=== PATIENT | female | born 1935 | race Caucasian/White ===

== ENCOUNTER 2021-05-05 11:42 | Inpatient (IN) | payer OTHER ==
[2021-05-05 12:14] VITALS: BMI 23.8
[2021-05-05 13:26] LABS: BASO % 0.9 % (0-2.0); EOS % 0.5 % (0-4.5); HEMATOCRIT 33.8 % (32.4-45.2); HEMOGLOBIN 11.3 GM/dL (10.7-15.3); LYMPH % 10.7 % (8-40); MCH 30.8 pg (25.7-33.7); MCHC 33.6 g/dl (32.0-36.0); MEAN CELL VOLUME 91.9 fl (80-96); MEAN PLT VOLUME 6.7 fl (7.5-11.1); NEUT % 81.9 % (42.8-82.8); PLATELET COUNT 424 10^3/uL (134-434); RBC 3.67 M/mm3 (3.60-5.2); WHITE BLOOD COUNT 8.8 K/mm3 (4.0-10.0)
[2021-05-05 13:29] LABS: EPI CELLS 18 /uL (0-25.1); HYALINE CASTS 2 /uL (0-3.1); URINE APPEARANCE TURBID; URINE BACTERIA >9,000 /uL (0-1359); URINE BILIRUBIN NEGATIVE (NEGATIVE); URINE COLOR YELLOW; URINE GLUCOSE (UA) NEGATIVE (NEGATIVE); URINE KETONE NEGATIVE (NEGATIVE); URINE LEUK ESTERASE 3+ (NEGATIVE); URINE NITRITE NEGATIVE (NEGATIVE); URINE PROTEIN 2+ (NEGATIVE); URINE RBC 96 /uL (0-23.9); URINE UROBILINOGEN 0.2 mg/dL (0.2-1.0); URINE WBC 5121 /uL (0-25.8)
[2021-05-05 13:32] LABS: INR 0.98 (0.83-1.09); PROTHROMBIN TIME (PATIENT) 11.9 SEC (9.7-13.0)
[2021-05-05 13:35] LABS: ACTIVATED PTT 25.6 SECONDS (25.2-36.5)
[2021-05-05 13:44] LABS: CHLORIDE 103 mmol/L (98-107); SODIUM 137 mmol/L (136-145)
[2021-05-05 13:46] LABS: ALBUMIN 3.1 g/dl (3.4-5.0); BLOOD UREA NITROGEN 8.4 mg/dL (7-18); CALCIUM 8.5 mg/dL (8.5-10.1)
[2021-05-05 13:47] LABS: ANION GAP 10 MMOL/L (8-16); CO2 24 mmol/L (21-32); GLUCOSE,RANDOM 106 mg/dL (74-106)
[2021-05-05 13:50] LABS: CREATININE 0.7 mg/dL (0.55-1.3); SGOT/AST 34 U/L (15-37); SGPT/ALT 20 U/L (13-61)
[2021-05-05 13:51] LABS: BILIRUBIN,TOTAL 0.3 mg/dL (0.2-1)
[2021-05-05 13:52] LABS: TOT PROT 6.6 g/dl (6.4-8.2)
[2021-05-05 13:53] LABS: ALK PHOS 140 U/L (45-117)
[2021-05-05 13:56] LABS: N-TERMINAL BNP 2958.7 pg/ml (5-450)
[2021-05-05] MEDS ORDERED: SODIUM CHLORIDE 0.9% 500 ML INFUS.BAG IV ONE (15:52)
[2021-05-05] MEDS ORDERED: ACETAMINOPHEN 1000 MG/100 ML VIAL (NON FORMULARY) IVPB ONE (16:37)
[2021-05-05] MEDS ORDERED: ACETAMINOPHEN INJECTION 100 ML IVPB ONE (16:55)
[2021-05-05] MEDS ORDERED: CEFTRIAXONE 1,000 MG in DEXTROSE 5%-WATER - 50 ML IVPB ONE (20:52)
[2021-05-05] MEDS ORDERED: CEFTRIAXONE 1 GM/50 ML BAG ONE (21:15)
[2021-05-05] MEDS ORDERED: MELATONIN 1 MG TABLET PO PRN (22:05)
[2021-05-06] MEDS: oxyCODONE HCL 5 MG TABLET PO SCH ×3 (05:15→16:19)
[2021-05-06] MEDS: INSULIN SLIDING SCALE (NOVOLOG) 1 VIAL SQ SCH ×4 (06:13→21:22)
[2021-05-06 09:17] LABS: CREATININE 0.4 mg/dL (0.55-1.3)
[2021-05-06] MEDS ORDERED: POTASSIUM CHLORIDE TABS 20 MEQ TABLET.ER (FP) PO ONE (09:17)
[2021-05-06] MEDS: DOCUSATE SODIUM 100 MG CAPSULE (FP) PO SCH ×2 (09:38→21:12)
[2021-05-06] MEDS: TAMSULOSIN HCL 0.4 MG CAP PO SCH (09:38)
[2021-05-06] MEDS: ASPIRIN 81 MG CHEWABLE TABLETS PO SCH (09:39)
[2021-05-06] MEDS: amLODIPine BESYLATE 5 MG TABLET (FP) PO SCH (09:46)
[2021-05-06] MEDS: VALSARTAN 80 MG TABLET PO SCH (09:46)
[2021-05-06] MEDS: ISOSORBIDE MONONITRATE 30 MG TAB.SR.24H (FP) PO SCH (09:46)
[2021-05-06] MEDS: CARVEDILOL 25 MG TABLET (FP) PO SCH (09:47)
[2021-05-06] MEDS: CLOPIDOGREL BISULFATE 75 MG TABLET (FP) PO SCH (09:47)
[2021-05-06] MEDS: PANTOPRAZOLE 40 MG TABLET PO SCH (09:47)
[2021-05-06] MEDS: LIDOCAINE 5% TOPICAL PATCH TP SCH (09:48)
[2021-05-06 09:53] LABS: BASO % 0.7 % (0-2.0); EOS % 0.9 % (0-4.5); HEMATOCRIT 32.5 % (32.4-45.2); MCH 30.5 pg (25.7-33.7); MCHC 33.9 g/dl (32.0-36.0); MEAN PLT VOLUME 6.5 fl (7.5-11.1); MONO % 6.9 % (3.8-10.2); NEUT % 81.5 % (42.8-82.8); PLATELET COUNT 361 10^3/uL (134-434); RBC 3.61 M/mm3 (3.60-5.2); RDW 17.4 % (11.6-15.6); WHITE BLOOD COUNT 10.4 K/mm3 (4.0-10.0)
[2021-05-06] MEDS ORDERED: metFORMIN HCL 500 MG TABLET (FP) PO SCH (10:00)
[2021-05-06] MEDS: KCL 10 MEQ IVPB 10 MEQ/100 ML INFUS.BAG IVPB SCH ×3 (11:34→16:21)
[2021-05-06] MEDS: ACETAMINOPHEN 325 MG TABLET (FP) PO SCH ×3 (11:35→19:16)
[2021-05-06] MEDS ORDERED: cefTRIAXone SODIUM 1 GM VIAL ONE (20:41)
[2021-05-06] MEDS ORDERED: DEXTROSE 5%-WATER - 50 ML IVPB ONE (20:41)
[2021-05-06] MEDS: SENNOSIDES 8.6MG TABLET (FP) PO SCH (21:06)
[2021-05-06] MEDS: CEFTRIAXONE 1 GM in DEXTROSE 5%-WATER - 50 ML IVPB SCH (21:11)
[2021-05-06] MEDS: LIDOCAINE PATCH REMOVAL MC SCH (21:12)
[2021-05-06] MEDS: DONEPEZIL HCL 10 MG TABLET (FP) PO SCH (21:12)
[2021-05-06] MEDS: ATORVASTATIN CA 80 MG TABLET (FP) PO SCH (21:13)
[2021-05-07] MEDS: INSULIN SLIDING SCALE (NOVOLOG) 1 VIAL SQ SCH ×4 (06:23→21:58)
[2021-05-07 09:41] LABS: HEMATOCRIT 34.1 % (32.4-45.2); HEMOGLOBIN 11.3 GM/dL (10.7-15.3); MCH 30.3 pg (25.7-33.7); MEAN CELL VOLUME 91.6 fl (80-96); MEAN PLT VOLUME 7.1 fl (7.5-11.1); PLATELET COUNT 363 10^3/uL (134-434); RBC 3.72 M/mm3 (3.60-5.2); RDW 17.6 % (11.6-15.6); WHITE BLOOD COUNT 8.8 K/mm3 (4.0-10.0)
[2021-05-07 10:09] LABS: CALCIUM 8.4 mg/dL (8.5-10.1)
[2021-05-07 10:10] LABS: BLOOD UREA NITROGEN 9.6 mg/dL (7-18); MAGNESIUM 1.5 mg/dL (1.8-2.4)
[2021-05-07 10:13] LABS: CREATININE 0.7 mg/dL (0.55-1.3); PHOSPHOROUS 3.7 mg/dL (2.5-4.9)
[2021-05-07] MEDS ORDERED: MAGNESIUM SULF 50% (8.12 MEQ/2 ML-1 GM VIAL) IVPB ONE (11:54)
[2021-05-07] MEDS: VALSARTAN 80 MG TABLET PO SCH (12:28)
[2021-05-07] MEDS: ISOSORBIDE MONONITRATE 30 MG TAB.SR.24H (FP) PO SCH (12:28)
[2021-05-07] MEDS: ASPIRIN 81 MG CHEWABLE TABLETS PO SCH (12:28)
[2021-05-07] MEDS: amLODIPine BESYLATE 5 MG TABLET (FP) PO SCH (12:29)
[2021-05-07] MEDS: DOCUSATE SODIUM 100 MG CAPSULE (FP) PO SCH ×2 (12:29→21:57)
[2021-05-07] MEDS: CARVEDILOL 25 MG TABLET (FP) PO SCH ×2 (12:29→21:58)
[2021-05-07] MEDS: TAMSULOSIN HCL 0.4 MG CAP PO SCH (12:29)
[2021-05-07] MEDS: CLOPIDOGREL BISULFATE 75 MG TABLET (FP) PO SCH (12:30)
[2021-05-07] MEDS: LIDOCAINE 5% TOPICAL PATCH TP SCH (12:30)
[2021-05-07] MEDS: PANTOPRAZOLE 40 MG TABLET PO SCH (12:31)
[2021-05-07] MEDS: oxyCODONE HCL 5 MG TABLET PO PRN (12:49)
[2021-05-07] MEDS ORDERED: MAGNESIUM OXIDE 400 MG TABLET (FP) PO ONE (16:12)
[2021-05-07] MEDS: ENOXAPARIN NA (PORCINE) 40 MG/0.4 ML DISP.SYRIN SQ SCH (17:24)
[2021-05-07] MEDS ORDERED: cefTRIAXone SODIUM 1 GM VIAL ONE (21:41)
[2021-05-07] MEDS ORDERED: DEXTROSE 5%-WATER - 50 ML IVPB ONE (21:41)
[2021-05-07] MEDS ORDERED: INSULIN (NOVOLOG) ASPART 100 UNITS/ML 10ML VIAL ONE (21:43)
[2021-05-07] MEDS: ATORVASTATIN CA 80 MG TABLET (FP) PO SCH (21:57)
[2021-05-07] MEDS: CEFTRIAXONE 1 GM in DEXTROSE 5%-WATER - 50 ML IVPB SCH (21:58)
[2021-05-07] MEDS: DONEPEZIL HCL 10 MG TABLET (FP) PO SCH (21:58)
[2021-05-07] MEDS: LIDOCAINE PATCH REMOVAL MC SCH (22:06)
[2021-05-07] MEDS: SENNOSIDES 8.6MG TABLET (FP) PO SCH (22:10)
[2021-05-08] MEDS: ACETAMINOPHEN 325 MG TABLET (FP) PO PRN
[2021-05-08] MEDS: SENNOSIDES 8.6MG TABLET (FP) PO SCH ×2 (00:20→21:52)
[2021-05-08] MEDS: INSULIN SLIDING SCALE (NOVOLOG) 1 VIAL SQ SCH ×4 (06:39→21:52)
[2021-05-08 07:51] LABS: HEMATOCRIT 30.2 % (32.4-45.2); HEMOGLOBIN 10.4 GM/dL (10.7-15.3); MCH 31.1 pg (25.7-33.7); MCHC 34.3 g/dl (32.0-36.0); MEAN CELL VOLUME 90.5 fl (80-96); MEAN PLT VOLUME 6.8 fl (7.5-11.1); PLATELET COUNT 318 10^3/uL (134-434); RBC 3.34 M/mm3 (3.60-5.2); RDW 17.3 % (11.6-15.6); WHITE BLOOD COUNT 7.8 K/mm3 (4.0-10.0)
[2021-05-08 07:56] LABS: INR 1.04 (0.83-1.09); PROTHROMBIN TIME (PATIENT) 12.6 SEC (9.7-13.0)
[2021-05-08 08:14] LABS: BLOOD UREA NITROGEN 13.7 mg/dL (7-18); CALCIUM 7.6 mg/dL (8.5-10.1)
[2021-05-08 08:15] LABS: MAGNESIUM 1.4 mg/dL (1.8-2.4)
[2021-05-08 08:18] LABS: CREATININE 0.9 mg/dL (0.55-1.3); PHOSPHOROUS 3.9 mg/dL (2.5-4.9)
[2021-05-08] MEDS: DOCUSATE SODIUM 100 MG CAPSULE (FP) PO SCH ×2 (11:31→21:51)
[2021-05-08] MEDS: ASPIRIN 81 MG CHEWABLE TABLETS PO SCH (11:31)
[2021-05-08] MEDS: VALSARTAN 80 MG TABLET PO SCH (11:31)
[2021-05-08] MEDS: TAMSULOSIN HCL 0.4 MG CAP PO SCH (11:31)
[2021-05-08] MEDS: PANTOPRAZOLE 40 MG TABLET PO SCH (11:31)
[2021-05-08] MEDS: ISOSORBIDE MONONITRATE 30 MG TAB.SR.24H (FP) PO SCH (11:32)
[2021-05-08] MEDS: CLOPIDOGREL BISULFATE 75 MG TABLET (FP) PO SCH (11:32)
[2021-05-08] MEDS: CARVEDILOL 25 MG TABLET (FP) PO SCH ×2 (11:32→21:52)
[2021-05-08] MEDS: amLODIPine BESYLATE 5 MG TABLET (FP) PO SCH (11:32)
[2021-05-08] MEDS: ENOXAPARIN NA (PORCINE) 40 MG/0.4 ML DISP.SYRIN SQ SCH (11:32)
[2021-05-08] MEDS: LIDOCAINE 5% TOPICAL PATCH TP SCH (11:33)
[2021-05-08] MEDS ORDERED: cefTRIAXone SODIUM 1 GM VIAL ONE (21:35)
[2021-05-08] MEDS ORDERED: DEXTROSE 5%-WATER - 50 ML IVPB ONE (21:36)
[2021-05-08] MEDS: ATORVASTATIN CA 80 MG TABLET (FP) PO SCH (21:52)
[2021-05-08] MEDS: DONEPEZIL HCL 10 MG TABLET (FP) PO SCH (21:52)
[2021-05-08] MEDS: LIDOCAINE PATCH REMOVAL MC SCH (21:56)
[2021-05-08] MEDS: CEFTRIAXONE 1 GM in DEXTROSE 5%-WATER - 50 ML IVPB SCH (22:05)
[2021-05-08] MEDS: oxyCODONE HCL 5 MG TABLET PO PRN (23:52)
[2021-05-09] MEDS ORDERED: PT OWN MED DRAWER 7, Y5N ONE (06:32)
[2021-05-09] MEDS: oxyCODONE HCL 5 MG TABLET PO PRN ×2 (06:34→17:17)
[2021-05-09] MEDS: INSULIN SLIDING SCALE (NOVOLOG) 1 VIAL SQ SCH ×4 (06:38→22:33)
[2021-05-09 07:58] LABS: HEMATOCRIT 29.5 % (32.4-45.2); HEMOGLOBIN 10.1 GM/dL (10.7-15.3); MCH 31.2 pg (25.7-33.7); MCHC 34.4 g/dl (32.0-36.0); MEAN CELL VOLUME 90.8 fl (80-96); MEAN PLT VOLUME 7.4 fl (7.5-11.1); PLATELET COUNT 244 10^3/uL (134-434); RBC 3.25 M/mm3 (3.60-5.2); RDW 17.6 % (11.6-15.6); WHITE BLOOD COUNT 7.6 K/mm3 (4.0-10.0)
[2021-05-09 08:13] LABS: CALCIUM 8.1 mg/dL (8.5-10.1)
[2021-05-09 08:14] LABS: BLOOD UREA NITROGEN 27.1 mg/dL (7-18)
[2021-05-09 08:17] LABS: CREATININE 0.9 mg/dL (0.55-1.3); PHOSPHOROUS 4.4 mg/dL (2.5-4.9)
[2021-05-09] MEDS: CARVEDILOL 25 MG TABLET (FP) PO SCH ×2 (09:40→22:31)
[2021-05-09] MEDS: ENOXAPARIN NA (PORCINE) 40 MG/0.4 ML DISP.SYRIN SQ SCH (09:40)
[2021-05-09] MEDS: TAMSULOSIN HCL 0.4 MG CAP PO SCH (09:40)
[2021-05-09] MEDS: DOCUSATE SODIUM 100 MG CAPSULE (FP) PO SCH ×2 (09:40→22:31)
[2021-05-09] MEDS: PANTOPRAZOLE 40 MG TABLET PO SCH (09:40)
[2021-05-09] MEDS: LIDOCAINE 5% TOPICAL PATCH TP SCH (09:40)
[2021-05-09] MEDS: CLOPIDOGREL BISULFATE 75 MG TABLET (FP) PO SCH (09:40)
[2021-05-09] MEDS: amLODIPine BESYLATE 5 MG TABLET (FP) PO SCH (09:40)
[2021-05-09] MEDS: ISOSORBIDE MONONITRATE 30 MG TAB.SR.24H (FP) PO SCH (09:40)
[2021-05-09] MEDS: ASPIRIN 81 MG CHEWABLE TABLETS PO SCH (09:40)
[2021-05-09] MEDS: VALSARTAN 80 MG TABLET PO SCH (09:40)
[2021-05-09] MEDS: ACETAMINOPHEN 325 MG TABLET (FP) PO PRN (09:41)
[2021-05-09] MEDS ORDERED: INSULIN (NOVOLOG) ASPART 100 UNITS/ML 10ML VIAL ONE (10:34)
[2021-05-09 11:19] LABS: INR 0.98 (0.83-1.09); PROTHROMBIN TIME (PATIENT) 11.9 SEC (9.7-13.0)
[2021-05-09 11:22] LABS: ACTIVATED PTT 34.1 SECONDS (25.2-36.5)
[2021-05-09] MEDS ORDERED: SODIUM CHLORIDE 500 ML IV STA (13:45)
[2021-05-09] MEDS ORDERED: DEXTROSE 5%-WATER - 50 ML IVPB ONE (22:09)
[2021-05-09] MEDS ORDERED: cefTRIAXone SODIUM 1 GM VIAL ONE (22:09)
[2021-05-09] MEDS: DONEPEZIL HCL 10 MG TABLET (FP) PO SCH (22:31)
[2021-05-09] MEDS: ATORVASTATIN CA 80 MG TABLET (FP) PO SCH (22:31)
[2021-05-09] MEDS: SENNOSIDES 8.6MG TABLET (FP) PO SCH (22:31)
[2021-05-09] MEDS: LIDOCAINE PATCH REMOVAL MC SCH ×2 (22:32→22:59)
[2021-05-09] MEDS: CEFTRIAXONE 1 GM in DEXTROSE 5%-WATER - 50 ML IVPB SCH (22:32)
[2021-05-10] MEDS: INSULIN SLIDING SCALE (NOVOLOG) 1 VIAL SQ SCH ×4 (06:25→21:19)
[2021-05-10 08:01] LABS: HEMATOCRIT 29.6 % (32.4-45.2); MCH 30.7 pg (25.7-33.7); MCHC 33.7 g/dl (32.0-36.0); MEAN CELL VOLUME 91.2 fl (80-96); MEAN PLT VOLUME 7.1 fl (7.5-11.1); PLATELET COUNT 295 10^3/uL (134-434); RBC 3.25 M/mm3 (3.60-5.2); RDW 17.2 % (11.6-15.6); WHITE BLOOD COUNT 11.5 K/mm3 (4.0-10.0)
[2021-05-10 08:18] LABS: BLOOD UREA NITROGEN 26.8 mg/dL (7-18); CALCIUM 7.9 mg/dL (8.5-10.1); MAGNESIUM 2.1 mg/dL (1.8-2.4)
[2021-05-10 08:21] LABS: CREATININE 0.8 mg/dL (0.55-1.3)
[2021-05-10 08:22] LABS: PHOSPHOROUS 4.5 mg/dL (2.5-4.9)
[2021-05-10 08:37] LABS: INR 0.98 (0.83-1.09); PROTHROMBIN TIME (PATIENT) 12.1 SEC (9.7-13.0)
[2021-05-10 08:39] LABS: ACTIVATED PTT 31.6 SECONDS (25.2-36.5)
[2021-05-10] MEDS: LIDOCAINE 5% TOPICAL PATCH TP SCH (09:28)
[2021-05-10] MEDS: CARVEDILOL 25 MG TABLET (FP) PO SCH ×2 (09:29→21:15)
[2021-05-10] MEDS: TAMSULOSIN HCL 0.4 MG CAP PO SCH (09:29)
[2021-05-10] MEDS: VALSARTAN 80 MG TABLET PO SCH (09:29)
[2021-05-10] MEDS: amLODIPine BESYLATE 5 MG TABLET (FP) PO SCH (09:29)
[2021-05-10] MEDS: ISOSORBIDE MONONITRATE 30 MG TAB.SR.24H (FP) PO SCH (09:29)
[2021-05-10] MEDS: ASPIRIN 81 MG CHEWABLE TABLETS PO SCH (09:29)
[2021-05-10] MEDS: DOCUSATE SODIUM 100 MG CAPSULE (FP) PO SCH ×2 (09:29→21:14)
[2021-05-10] MEDS: PANTOPRAZOLE 40 MG TABLET PO SCH (09:30)
[2021-05-10] MEDS: CLOPIDOGREL BISULFATE 75 MG TABLET (FP) PO SCH (09:30)
[2021-05-10] MEDS: ENOXAPARIN NA (PORCINE) 40 MG/0.4 ML DISP.SYRIN SQ SCH (09:30)
[2021-05-10] MEDS ORDERED: INSULIN (NOVOLOG) ASPART 100 UNITS/ML 10ML VIAL ONE ×2 (11:50→20:57)
[2021-05-10] MEDS: ACETAMINOPHEN 325 MG TABLET (FP) PO PRN (16:44)
[2021-05-10] MEDS: SENNOSIDES 8.6MG TABLET (FP) PO SCH (21:15)
[2021-05-10] MEDS: ATORVASTATIN CA 80 MG TABLET (FP) PO SCH (21:15)
[2021-05-10] MEDS: LIDOCAINE PATCH REMOVAL MC SCH (21:16)
[2021-05-10] MEDS: DONEPEZIL HCL 10 MG TABLET (FP) PO SCH (21:16)
[2021-05-10] MEDS: oxyCODONE HCL 5 MG TABLET PO PRN (22:12)
[2021-05-11] MEDS: ACETAMINOPHEN 325 MG TABLET (FP) PO PRN (06:11)
[2021-05-11] MEDS: INSULIN SLIDING SCALE (NOVOLOG) 1 VIAL SQ SCH ×2 (06:12→12:37)
[2021-05-11] MEDS: TAMSULOSIN HCL 0.4 MG CAP PO SCH (09:19)
[2021-05-11] MEDS: oxyCODONE HCL 5 MG TABLET PO PRN (09:32)
[2021-05-11] MEDS: amLODIPine BESYLATE 5 MG TABLET (FP) PO SCH (10:19)
[2021-05-11] MEDS: ENOXAPARIN NA (PORCINE) 40 MG/0.4 ML DISP.SYRIN SQ SCH (10:19)
[2021-05-11] MEDS: PANTOPRAZOLE 40 MG TABLET PO SCH (10:20)
[2021-05-11] MEDS: CLOPIDOGREL BISULFATE 75 MG TABLET (FP) PO SCH (10:20)
[2021-05-11] MEDS: ASPIRIN 81 MG CHEWABLE TABLETS PO SCH (10:20)
[2021-05-11] MEDS: VALSARTAN 80 MG TABLET PO SCH (10:20)
[2021-05-11] MEDS: LIDOCAINE 5% TOPICAL PATCH TP SCH (10:21)
[2021-05-11] MEDS: ISOSORBIDE MONONITRATE 30 MG TAB.SR.24H (FP) PO SCH (10:23)
[2021-05-11] MEDS: CARVEDILOL 25 MG TABLET (FP) PO SCH (10:24)
[2021-05-11] MEDS: DOCUSATE SODIUM 100 MG CAPSULE (FP) PO SCH (10:24)
[2021-05-11] MEDS ORDERED: PT OWN MED DRAWER 7, Y5N ONE (12:35)
[2021-05-11 14:39] VITALS: BP 106/42; PULSE 75; TEMP 98.8
== END 2021-05-11 19:07 | disposition home or self-care (01) | DRG 197 ==
LOC: JER 11:42 → JERBED 20:54 → J7W 23:31
PROVIDERS: ADMIT Internal Medicine; ATTEND Internal Medicine
DX: E11.51 Type 2 diabetes mellitus with diabetic peripheral angiopathy without gangrene (principal); E11.22 Type 2 diabetes mellitus with diabetic chronic kidney disease; I12.9 Hypertensive chronic kidney disease with stage 1 through stage 4 chronic kidney disease, or unspecified chronic kidney disease; N18.9 Chronic kidney disease, unspecified; F03.90 Unspecified dementia, unspecified severity, without behavioral disturbance, psychotic disturbance, mood disturbance, and anxiety; M79.671 Pain in right foot; N39.0 Urinary tract infection, site not specified; R26.2 Difficulty in walking, not elsewhere classified; Z89.612 Acquired absence of left leg above knee; Z86.73 Personal history of transient ischemic attack (TIA), and cerebral infarction without residual deficits
CPT/HCPCS: 36415; 75635-TC; 80048; 80053; 81003; 82962; 83735; 83880; 84100; 84443; 84484; 85025; 85027; 85610; 85730; 86850; 86900; 86901; 87086; 93005; 93010; 93971-TC; 99285-25; C9803; J0131; Q9967; U0003; U0005